=== PATIENT | female | born 1955 | race Caucasian/White ===

== ENCOUNTER 2024-08-07 00:30 | Emergency (ER) | payer MEDICARE, SELFPAY ==
[2024-08-07 00:33] VITALS: BP 166/126
[2024-08-07 00:50] VITALS: BP 170/102
[2024-08-07 01:00] VITALS: BP 161/93
[2024-08-07 01:16] LABS: % Immature Granulocytes 0.5 % (0-0.5); % Monocytes 8.3 % (1.7-9.3); % Neutrophils 44.2 % (42.2-75.2); Absolute Basophils 0.1 10^3/uL (0-0.2); Absolute Eosinophils 1.2 10^3/uL (0-0.7); Absolute Immature Granulocytes 0.1 10^3/uL (0-0.05); Absolute Lymphocytes 3.3 10^3/uL (1.2-3.4); Absolute Monocytes 0.8 10^3/uL (0.1-0.6); Absolute Neutrophils 4.3 10^3/uL (1.4-6.5); Hemoglobin 15.3 g/dL (12.0-16.0); Mean Corp Hgb Conc. 32.6 g/dL (33.0-37.0); Mean Corpuscular Hgb 28.2 pg (27.0-31.0); Mean Corpuscular Volume 86.7 fL (81.0-99.0); Nucleated Red Blood Cells % 0 %; Platelet Count 297 10^3/uL (130-400); Red Blood Cell Count 5.42 10^6/uL (4.20-5.40); Red Cell Dist. Width 13.8 % (11.5-14.5); White Blood Cell Count 9.7 10^3/uL (4.8-10.8)
[2024-08-07 01:28] LABS: ALT (SGPT) 19 U/L (0-35); AST (SGOT) 23 U/L (14-36); Alkaline Phosphatase 104 U/L (38-126); Blood Urea Nitrogen 18 mg/dl (7-17); Carbon Dioxide 24 mmol/L (22-30); Chloride 106 mmol/L (98-107); Glucose 116 mg/dl (70-99); Potassium 3.8 mmol/L (3.5-5.1); Sodium 140 mmol/L (135-145); Total Bilirubin 0.5 mg/dl (0.2-1.3); Total Protein 6.7 g/dl (6.3-8.2); eGFR > 60.00
--- NOTE | 2024-08-07 01:29 | ED.GENMED ---
History of Present Illness
General
Chief Complaint: Breathing Problem
Time Seen by Provider: 08/07/24 01:04
History of Present Illness
History of Present Illness:
patient presents with sob worsening over the past 24-48 hours gradually
feels similar to prior COPD exacerbations
no cp
no leg swelling
no fevers/chills
Phy Exam
Physical Exam
Physical Exam:
GENERAL APPEARANCE: NAD, well developed/ well nourished
EYES lids/conjunctiva normal
EARS/NOSE/THROAT Mucous membranes moist, uvula midline without oral pharyngeal erythema, exudate or swelling
HEAD/NECK normocephalic atraumatic, neck is supple.
RESPIRATORY respiratory effort normal, speaks in full sentences, no accessory muscle use. scattered wheezing
CARDIAC Regular rate and rhythm, no edema.
ABDOMINAL Soft, ND/NT.
MUSCLES/EXTREMITIES No abnormal range of motion, no swelling.
SKIN Warm, pink and dry. No rashes
NEUROLOGICAL Speech is clear and appropriate. Normal level of consciousness. 5/5 strength in all extremities.
PSYCH Normal mood and affect. Judgement/competence is appropriate
Scores
Heart Failure Risk
Heart Failure Risk Score: Not Applicable
Course
Orders/Labs/Results
Orders:
Orders
08/07/24 01:01
Electrocardiogram (*1) Urgent
Reason for Study: Other
Other Reason for Exam: Respiratory Distress
Cardiac Monitoring- Treatment ONCE
EKG- Treatment ONCE
IV Insert/Care/Rem.- Treatment PRN
CR Chest - 2 Views Urgent
Comment:
Reason For Exam: respiratory distress
O2 Therapy [RESP] Urgent
Titrate/Wean O2 to maintain O2 sat greater than (%): 93
Special Instructions: TO MAINTAIN CONTINUOUS O2 SATS >/= 93%
Pulse Ox/cont/shift [RESP] Urgent
Quantity: 1
Special Instructions: continuous pulse ox
08/07/24 01:03
Complete Blood Count/With Diff Urgent
Comprehensive Metabolic Panel Urgent
NT-proBNP Urgent
Troponin I Urgent
08/07/24 01:27
Albuterol Sulfate [Ventolin Nebules] 7.5 mg INH R NOW STA
MethylPREDNISolone PF [Solu-Medrol Pf] 125 mg IV NOW STA
08/07/24 01:40
Ipratropium/Albuterol Sulfate [Duoneb] 3 ml INH R NOW STA
08/07/24 01:45
COVID-19 Antigen Urgent
Source: Nasal Swab
Influenza A+B Rapid Molecular Urgent
GYPSY Source: Nasal Swab
Specimen Description:
Abnormal Lab Results
08/07/24
01:03
RBC 5.42 H 10^6/uL
(4.20-5.40)
MCHC 32.6 L g/dL
(33.0-37.0)
Abs Immat Gran (auto) 0.1 H 10^3/uL
(0-0.05)
Absolute Monos (auto) 0.8 H 10^3/uL
(0.1-0.6)
Absolute Eos (auto) 1.2 H 10^3/uL
(0-0.7)
Eosinophils % 12.0 H %
(0-6)
BUN 18 H mg/dl
(7-17)
Glucose 116 H mg/dl
(70-99)
08/07/24 01:03
08/07/24 01:03
Vital Signs
Initial and Last Documented VS:
Initial Vital Signs
Temp Pulse Resp BP Pulse Ox
97.6 F 121 24 166/126 91
08/07/24 00:33 08/07/24 00:33 08/07/24 00:33 08/07/24 00:33 08/07/24 00:33
Last Documented Vital Signs
Temp Pulse Resp BP Pulse Ox
97.6 F 81 21 161/93 95
08/07/24 00:33 08/07/24 01:17 08/07/24 01:17 08/07/24 01:00 08/07/24 01:17
*Critical Care Note
Total Time (30-74mins, 75-104mins- exclusive of procedures): Not Applicable
ED Attending Note
ED Attending Note
ED Attending Note:
Patient presents with wheezing and cough c/w COPD exacerbation. Patient desaturated requiring 2 L nasal cannula. Plan for bronchodilator nebulizer treatment, steroids, reassessment.
patient now saturating well on room air. Feels much better. Offered observation for continued neb treatments/steroids. She prefers to go home. Instructed to follow up with her primary doctor for close follow up . Return precautions
-
Portions of this chart may have been created with voice recognition software.� Occasional wrong word or��sound alike� substitutions may have occurred due to the inherent limitations of voice recognition software.
Discharge Plan
Departure
Patient Disposition: Home (Routine Discharge)
Date of Disposition: 08/07/24
Time of Disposition: 02:34
Patient with high blood pressure during this ER visit?: Yes
Discharge Problem:
Acute exacerbation of chronic obstructive pulmonary disease
Instructions: Exacerbation of COPD (DC)
Prescriptions:
New
albuterol sulfate 1.25 mg/3 mL solution for nebulization
2.5 mg inhalation QID PRN (Reason: shortness of breath or wheezing) Qty: 75 0RF
prednisone 20 mg tablet
40 mg PO DAILY Qty: 8 0RF
No Action
albuterol sulfate [ProAir HFA] 90 mcg/actuation Hfa Aerosol Inhaler
2 puff INHALATION QID PRN (Reason: SOB)
Anoro Ellipta 62.5-25 mcg/actuation Blister With Device
1 inh INHALATION DAILY
Referrals:
NONE,* [Family Provider] -
Interventions
Interventions:
*Risk Screen - Suicide Last Done: 08/07/24 00:43
*General Assessment Last Done: 08/07/24 00:50
*Neglect/Abuse Screening Last Done: 08/07/24 00:43
*ED COVID-19 Vaccine History Last Done: 08/07/24 00:33
ED- Cardiac Assessment Last Done: 08/07/24 01:57
ED- Pulmonary Assessment Last Done: 08/07/24 01:57
Discharge Date and Time
Print Language: OMANI
[2024-08-07 01:35] LABS: Troponin I < 0.012 ng/ml
[2024-08-07] MEDS: SOLU-MEDROL PF 125 MG IV (01:39)
[2024-08-07] MEDS: VENTOLIN NEBULES 7.5 MG INH (01:40)
[2024-08-07] MEDS: DUONEB 3 ML INH (01:41)
[2024-08-07 02:00] VITALS: BP 138/77
[2024-08-07 02:01] LABS: NT-proBNP 349 pg/ml
[2024-08-07 02:18] LABS: COVID-19 Antigen Negative (Negative)
[2024-08-07 02:57] VITALS: BP 144/70
== END 2024-08-07 03:11 | disposition home or self-care (01) ==
LOC: EMR 00:30
PROVIDERS: Student in an Organized Health Care Education/Training Program; EMERGENCY PHYSICIAN Emergency Medicine
DX: J44.1 Chronic obstructive pulmonary disease with (acute) exacerbation (principal)
CPT/HCPCS: 99283; 71046; 80053; 83880; 84484; 85025; 87502; 87811; 93005

== ENCOUNTER 2024-08-13 01:44 | Inpatient (IN) | payer MEDICARE, SELFPAY ==
[2024-08-12 22:23] VITALS: BP 169/101
[2024-08-12 23:15] VITALS: BP 158/93
[2024-08-12 23:21] VITALS: BMI 28.1
--- NOTE | 2024-08-12 23:41 | ED.GENMED ---
History of Present Illness
General
Chief Complaint: Breathing Problem
Time Seen by Provider: 08/12/24 23:03
History of Present Illness
History of Present Illness:
68-year-old female with history of COPD presenting to the emergency department for shortness of breath. Patient reports she woke up prior to arrival feeling short of breath with wheezing. She tried taking her inhaler without relief. Reports
similar symptoms about a week ago, did require coming to the hospital. Denies history of admission or intubation. Notes that she recently moved from [place] bout 3 weeks ago, had been living there for 20 years. Denies any chest pain. Denies
abdominal pain. She also reports a nonproductive cough. Denies additional acute medical complaints
Phy Exam
Physical Exam
Physical Exam:
General: Well-appearing, no clinical signs of dehydration, nontoxic and in no acute distress
HEENT: protecting airway
Neck: appears supple
CV: Normal heart rate, regular rhythm
Resp: Mild increased work of breathing with diffuse expiratory wheezing
Abd: Soft and non-distended, no tenderness to palpation
Extremities: No deformities, no swelling, no erythema
Neuro: alert, no focal neurologic deficit
: deferred
Rectal: deferred
Psych: Normal affect
Skin: Intact
Scores
Heart Failure Risk
Heart Failure Risk Score: Not Applicable
Course
Orders/Labs/Results
Orders:
Orders
08/12/24 22:26
EKG [Electrocardiogram (*1)] Urgent
Reason for Study: Palpitations
08/12/24 22:27
EKG- Treatment ONCE
08/12/24 23:25
Complete Blood Count/With Diff Urgent
Comprehensive Metabolic Panel Urgent
08/12/24 23:30
Ipratropium/Albuterol Sulfate [Duoneb] 9 ml INH R NOW STA
MethylPREDNISolone PF [Solu-Medrol Pf] 125 mg IV NOW STA
08/12/24 23:50
COVID-19 Antigen Urgent
Source: Nasal Swab
Influenza A+B Rapid Molecular Urgent
GYPSY Source: Nasal Swab
Specimen Description:
08/13/24 00:00
CR Chest - 2 Views Urgent
Reason For Exam: cough
08/13/24 01:29
Admit/Transfer Patient As Directed
Co-Sign Provider:
Level of Care: Inpatient admission
Assign to:: Medical/Surgical
Physician / Group: hospitalist
Diagnosis: COPD exacerbation
Reason for Hospitalization: hypoxia
Expected length of stay greater than two midnights?: Yes
ELOS- Estimated Length of Stay in days: 2
I certify the patient meets the requirements for IP care: Yes
Code Status As Directed
Resuscitation Status: Full Code
PRN Pain Medication Management As Directed
May give lesser potent ordered pain med per pt: Yes
preference::
Protocol:: Medication orders for pain may be administered in a
manner that supports deferring to patient preference
when the pt is:
- Requesting an ordered lesser potent pain medication.
Least to most potent pain medications are defined
as: acetaminophen < NSAID < tramadol < opioids
(morphine, oxycodone, hydromorphone).
- Requesting a lesser dose of the same medication IF
ORDERED.
- Requesting a less intrusive route of administration
if both routes are prescribed by the provider (PO <
IV).
08/13/24 02:24
Acetaminophen [Tylenol] 650 mg PO Q4HPRN PRN
Guaifenesin Solution [Robitussin] 200 mg PO Q4HPRN PRN
Ipratropium/Albuterol Sulfate [Duoneb] 3 ml INH R Q4HPRN PRN
MethylPREDNISolone PF [Solu-Medrol Pf] 40 mg IV Q12H
08/13/24 02:24
Activity As Directed
Activity Level: With Assistance
Intake/ Output As Directed
Frequency: Per unit guidelines
Vital Signs As Directed
Frequency: Per unit guidelines
Copd Education [RESP] Routine
Oxygen Therapy [O2 Therapy] [RESP] Routine
Nasal Cannula Liter Flow: 2 LPM
Titrate/Wean O2 to maintain O2 sat greater than (%): 92
DX Deep Vein Thrombosis Video Routine
08/13/24 Breakfast
Regular
At Your Request: Full Participation
Basic Metabolic Panel IN AM
08/13/24 08:00
Guaifenesin [Mucinex] 600 mg PO Q12
Ipratropium/Albuterol Sulfate [Duoneb] 3 ml INH R QID
08/13/24 18:00
Enoxaparin Sodium [Lovenox] 40 mg SC QPM
08/14/24 06:00
Azithromycin 500 mg/250 ml [Zithromax Infusion] 500 mg in 250 ml IV Q24H
Abnormal Lab Results
08/12/24
23:25
WBC 15.7 H 10^3/uL
(4.8-10.8)
MCHC 32.6 L g/dL
(33.0-37.0)
RDW 14.6 H %
(11.5-14.5)
Abs Immat Gran (auto) 0.2 H 10^3/uL
(0-0.05)
Absolute Lymphs (auto) 5.3 H 10^3/uL
(1.2-3.4)
Absolute Monos (auto) 1.4 H 10^3/uL
(0.1-0.6)
Absolute Eos (auto) 2.6 H 10^3/uL
(0-0.7)
Immature Gran % 1.0 H %
(0-0.5)
Neutrophils % 39.7 L %
(42.2-75.2)
Eosinophils % 16.3 H %
(0-6)
Glucose 116 H mg/dl
(70-99)
08/12/24 23:25
08/12/24 23:25
Vital Signs
Initial and Last Documented VS:
Initial Vital Signs
Temp Pulse Resp BP Pulse Ox
98.7 F 79 28 169/101 95
08/12/24 22:23 08/12/24 22:23 08/12/24 22:23 08/12/24 22:23 08/12/24 22:23
Last Documented Vital Signs
Temp Pulse Resp BP Pulse Ox
97.7 F 77 17 140/68 96
08/13/24 02:31 08/13/24 02:31 08/13/24 02:31 08/13/24 02:31 08/13/24 02:31
MDM/Problems Addressed
MDM/Problems Addressed:
68-year-old female with history of COPD presenting for cough and wheezing, which woke her up from sleep. Vital signs on arrival significant for hypertension.
On exam, patient is resting comfortably, however active dry cough. Diffuse expiratory wheezing. Suspected acute COPD exacerbation. Possible trigger from weather change, recently moved from [place] 3 weeks ago. Patient afebrile, nontoxic. Lower
suspicion for infectious pathology. Will give DuoNebs, Solu-Medrol. Will obtain chest x-ray imaging and laboratory analysis and reassess for improvement.
01:20 -chest x-ray without obvious infiltrate. On reassessment patient notes that she is feeling less tight, however still short of breath. When I walked into examination room, oxygen saturation was 86%. For this reason feel patient warrants
admission for hypoxia and COPD exacerbation. Patient agreeable to plan
*EKG
Interpreted by ED Provider?: Yes
EKG Intrepretation Date: 08/12/24
EKG Intrepretation Time: 23:43
Interpretation: normal
Comparison EKG: no changes (08/07/24)
Heart Rate: 81
Rate: normal
Rhythm: sinus
Larue: normal axis
Interval: normal interval
QRS Pattern: normal QRS
Ischemia: no ischemia
*Critical Care Note
Total Time (30-74mins, 75-104mins- exclusive of procedures): Not Applicable
ED Attending Note
-
Portions of this chart may have been created with voice recognition software.� Occasional wrong word or��sound alike� substitutions may have occurred due to the inherent limitations of voice recognition software.
Discharge Plan
Departure
Patient Disposition: Admit
Date of Disposition: 08/13/24
Time of Disposition: 01:25
Presentation/result/management discussed w/ accepting MD/DO: Hospitalist
Patient with high blood pressure during this ER visit?: No
Condition: Fair
Discharge Problem:
COPD with acute exacerbation, Hypoxia
Interventions
Interventions:
*Risk Screen - Suicide Last Done: 08/12/24 22:23
*General Assessment Last Done: 08/12/24 23:21
*Neglect/Abuse Screening Last Done: 08/12/24 22:23
*ED COVID-19 Vaccine History Last Done: 08/12/24 23:21
*Nursing Disposition Last Done: 08/13/24 02:16
ED- Cardiac Assessment Last Done: 08/12/24 23:21
ED- Pulmonary Assessment Last Done: 08/12/24 23:21
Discharge Date and Time
Discharge Date/Time: 08/13/24 02:16
[2024-08-12] MEDS: SOLU-MEDROL PF 125 MG IV (23:43)
[2024-08-12] MEDS: DUONEB 9 ML INH (23:43)
[2024-08-12 23:46] LABS: ALT (SGPT) 19 U/L (0-35); AST (SGOT) 19 U/L (14-36); Alkaline Phosphatase 94 U/L (38-126); Blood Urea Nitrogen 17 mg/dl (7-17); Carbon Dioxide 26 mmol/L (22-30); Chloride 107 mmol/L (98-107); Estimated Creatinine Clearance 80 ml/min; Glucose 116 mg/dl (70-99); Potassium 3.8 mmol/L (3.5-5.1); Sodium 140 mmol/L (135-145); Total Bilirubin 0.6 mg/dl (0.2-1.3); Total Protein 6.5 g/dl (6.3-8.2); eGFR > 60.00
[2024-08-12 23:48] LABS: Hematocrit 45.4 % (37.0-47.0); Hemoglobin 14.8 g/dL (12.0-16.0); Mean Corp Hgb Conc. 32.6 g/dL (33.0-37.0); Mean Platelet Volume 8.9 fL (7.4-10.4); Platelet Count 309 10^3/uL (130-400); Red Blood Cell Count 5.28 10^6/uL (4.20-5.40); Red Cell Dist. Width 14.6 % (11.5-14.5); White Blood Cell Count 15.7 10^3/uL (4.8-10.8)
[2024-08-13 00:21] LABS: COVID-19 Antigen Negative (Negative)
[2024-08-13 00:23] LABS: % Basophils 0.6 % (0-2); % Eosinophils 16.3 % (0-6); % Lymphocytes 33.7 % (20.5-51.1); % Monocytes 8.7 % (1.7-9.3); % Neutrophils 39.7 % (42.2-75.2); Absolute Basophils 0.1 10^3/uL (0-0.2); Absolute Eosinophils 2.6 10^3/uL (0-0.7); Absolute Immature Granulocytes 0.2 10^3/uL (0-0.05); Absolute Lymphocytes 5.3 10^3/uL (1.2-3.4); Absolute Monocytes 1.4 10^3/uL (0.1-0.6); Absolute Neutrophils 6.2 10^3/uL (1.4-6.5); Nucleated Red Blood Cells % 0 %
[2024-08-13 01:06] VITALS: BP 135/73
--- NOTE | 2024-08-13 01:50 | HPS.HSE ---
Family Physician
-
Family Physician: NOT KNOW UNKNOWN - PT DOES
Chief Complaint
-
Wheezing and shortness of breath
History of Present Illness
This is a 68-year-old female who has a past medical history of COPD not on home O2, diagnosed 1 year ago presenting to the emergency department with worsening cough shortness of breath and dyspnea on exertion after approximately 6 days of treatment
for COPD exacerbation recently.
She reported that she was diagnosed with COPD 1 year ago and is being followed by pulmonary. She is on [place]. She had a screening CT scan done recently about 4 to 5 weeks ago per pulmonary and had no acute issues. Patient then traveled from
[place] to start living in [place] 3 weeks ago. She says she drove about 16 hours. Patient reported that she started having symptoms of nonproductive cough or wheezing and shortness of breath about 8 days ago. She was seen in the emergency
department. She had a clear chest x-ray without any signs of acute infection. She was diagnosed with COPD exacerbation and placed on short course of prednisone. She reported that she took the prednisone and finished the course about 2 days ago.
She felt improved while she was on prednisone but once she finished the medication she started having the dyspnea on exertion and shortness of breath again. She states she arose this evening with severe shortness of breath dyspnea on exertion and
she could not catch her breath. She denies having any chest pain. She denied any dizziness or lightheadedness. Her cough is nonproductive and she was not markedly coughing for me. She has had no fevers or chills. She is unaware of any sick
contacts. She stopped smoking about 1 year ago.
She denies any history of congestive heart failure, she denies any lower extremity edema PND or orthopnea.
In the emergency department the patient was afebrile, blood pressure was stable at 125/70 with a pulse of 89. She was satting at 88% on room air. After initial treatments in the ED she improved but again desatted to 80s on room air. ECG showed
normal sinus rhythm at a rate of [address] or T wave changes. Chest x-ray shows no acute infiltrates. White count was 15,000 with involvement of 14.8 and a normal platelet count. Electrolytes BUN/creatinine as well as LFTs were within
normal limits. COVID and influenza test were negative
Medical History
Past Medical History
Past Medical History: Reports COPD
Past Surgical History: Reports Cholecystectomy
Social History
Tobacco: Former Smoker
Alcohol: None
Drug: None
Personal: Single
Living: Alone
Employment: Retired
Family History
Family History: Not pertinent
Allergies / Home Medications
Allergies reflects when Allergies were last updated in [facility].
Home Medications with original date entered in [facility]
Allergy/Medication List:
Allergies
Allergy/AdvReac Type Severity Reaction Status Date / Time
Cephalosporins Allergy Unknown Verified 08/12/24 22:23
penicillin G Allergy Unknown Verified 08/12/24 22:23
Penicillins Allergy Unknown Verified 08/12/24 22:23
Home Medications
albuterol sulfate 1.25 mg/3 mL solution for nebulization 2.5 mg (6 mL) inhalation QID PRN shortness of breath or wheezing #75 mL 08/07/24
albuterol sulfate 90 mcg/actuation aerosol inhaler 2 puff inhalation QID PRN SOB 08/07/24
prednisone 20 mg tablet 40 mg (2 x 20 mg) PO DAILY #8 tabs 08/07/24
umeclidinium 62.5 mcg-vilanterol 25 mcg/actuation powdr for inhalation (Anoro Ellipta) 1 inh inhalation DAILY 08/07/24
Review of Systems
-
History Source: Patient
Constitutional: Reports No Symptoms
EENT: Reports No Symptoms
Respiratory: Reports Cough and Trouble Breathing
Cardiac: Reports No Symptoms
Abdomen/GI: Reports No Symptoms
: Reports No Symptoms
Musculoskeletal: Reports No Symptoms
Skin: Reports No Symptoms
Neurological: Reports No Symptoms
Endocrine: Reports No Symptoms
Hematologic/Lymphatic: Reports No Symptoms
Psych: Reports No Symptoms
Physical Exam
Vital Signs
Vital Signs
Temp Pulse Resp BP Pulse Ox
98.7 F 88 27 135/73 93
08/12/24 22:23 08/13/24 01:06 08/13/24 01:06 08/13/24 01:06 08/13/24 00:30
Physical Exam
General: Well Developed, Well Nourished, Comfortable and Conversant
HEENT: NormoCephalic, Anicteric, Moist mucous membranes and Atraumatic
Respiratory: Wheezes
Cardiac: S1/S2 and Regular Rhythm
Breast: Deferred by me
GI: Soft, Non Tender, Non Distended and Normal Bowel Sounds
Rectal: Deferred by Provider
Genito-urinary: Deferred by me
Musculoskeletal: No Clubbing, No Cyanosis and No Edema
Skin: Warm
Neuro: AO x 3
Hematologic/Lymphatic: No Lymphadenopathy
Psych: Calm
Laboratory Results
-
08/12/24 23:25
08/12/24 23:25
Laboratory Results
Total Bilirubin 0.6 mg/dl (0.2-1.3) 08/12/24 23:25
AST 19 U/L (14-36) 08/12/24 23:25
ALT 19 U/L (0-35) 08/12/24 23:25
Alkaline Phosphatase 94 U/L (38-126) 08/12/24 23:25
Data Reviewed
-
Diagnostic Radiology: Image Personally Visualized and interpreted
Medical Tests (Nuc Med, Echo, EKG etc): Image Personally Visualized and interpreted
Lab Data: Labs Reviewed by me
Old Records: Reviewed
Impression/Plan
-
IMPRESSION:
68 y.o female with history of COPD coming in with persistent symptoms of non-productive cough, shortness of breath and wheezing despite recent treatment with steroids and nebs for presumed non-infectious COPD exacerbation. She is hypoxic on room
air. Xray is clear. No signs of volume issues. CBC notable for leukocytosis with significant eos. She has hypereosinophilia but no prior diagnosis of asthma and denies hospitalizations for bronchitis/pneumonia in the past. Negative flu/covid.
PLAN:
1. SOB/Hypoxia - Recent diagnosis of COPD here with cough, hypoxia, wheezing SOB. Differential includes COPD exacerbation from viral/bacterial infection. Possibly triggered by PE, recent [address] from [place]. Given eosinophilia cannot rule
out asthma with/or new allergic exposures given recent move to new home.
- admit to med surg
- check d-dimer, RSV,
- start azithromycin
- solu-medrol 40mg iv q 12
- duonebs RTC and prn
- oxygen support
- consider pulmonary consultation
2. Leukocytosis - Likely from recent steroid use
- monitor
3. Possible Hypereosinophilia - Given wheezing suspect possibility of asthma. Had a recent CT Chest before coming from [place] which had no pulmonary mass/nodules or blood clot. No priro h/o malignancy. No new meds
- treatment as above
- repeat CBC when patient improved in 1 month and f/u with pmd or hematology
DVT PPX - lovenox sq
Code status -DNR
[2024-08-13 02:00] VITALS: BP 121/53
[2024-08-13 02:31] VITALS: BP 140/68
[2024-08-13 02:35] VITALS: BMI 27.1
[2024-08-13 02:42] LABS: D-Dimer 0.69 ug/mlFEU (0.00-0.50)
[2024-08-13] MEDS: TYLENOL 650 MG PO (03:13)
--- NOTE | 2024-08-13 04:05 | PTCARENOTE ---
pt arrived to floor via stretcher From ED with 2L o2 satting at 96%. Pt and ambulated with a steady gait to bed, no obvi ROLAND. VSS. Pt oriented to room, call [facility] in reach, and discussed plan of care. Will continue to monitor.
[2024-08-13] MEDS: ZITHROMAX INFUSION 250 IV (04:59)
[2024-08-13] MEDS: COMPAZINE 5 MG IV (06:09)
[2024-08-13] MEDS: DUONEB 3 ML INH ×4 (07:26→19:20)
[2024-08-13 08:00] VITALS: BP 144/78
[2024-08-13 08:23] LABS: Blood Urea Nitrogen 18 mg/dl (7-17); Calcium 8.8 mg/dl (8.4-10.2); Carbon Dioxide 24 mmol/L (22-30); Chloride 108 mmol/L (98-107); Estimated Creatinine Clearance 83 ml/min; Glucose 158 mg/dl (70-99); Potassium 4.9 mmol/L (3.5-5.1); Sodium 140 mmol/L (135-145); eGFR > 60.00
[2024-08-13] MEDS: MUCINEX 600 MG PO ×2 (08:55→20:19)
[2024-08-13] MEDS: SOLU-MEDROL PF 40 MG IV ×2 (08:57→20:23)
[2024-08-13] MEDS: VIBRAMYCIN 260 MG IV ×2 (09:11→22:21)
--- NOTE | 2024-08-13 09:51 | W.PN.UPDATE ---
Update Note
Progress Note Update
Patient seen and examined after postmidnight admission. She reports her shortness of breath is improved. Vital signs stable. No acute distress, awake and alert. Regular rate and rhythm, normal S1-S2. Clear to auscultation bilaterally. Continue
IV Solu-Medrol and plan as outlined in the H&P done earlier today.
--- NOTE | 2024-08-13 10:20 | CON.PUL ---
Consultation
Consultation Request
Date/Time Consultation Requested: 08/13/24
Date/Time Consultation Performed: 08/13/24
Performing Provider: Therese
Reason for Consultation: AECOPD
Medical History
-
History of Present Illness:
Patient is a 68-year-old female with past medical history of COPD not on home O2, diagnosed 1 year ago presenting to the emergency department with worsening cough, shortness of breath after recent treatment for COPD exacerbation on 08/07 (she was
seen in ER and given neb treatment and prednisone taper).
She reported that she was diagnosed with COPD 1 year ago and is being followed by pulmonary in [place], placed on Wixela. She had a screening CT scan done recently about 4 to 5 weeks ago per pulmonary and had no acute issues. Patient then moved to [place] 3
weeks ago, transitioned to [facility] but not yet seen. Noted to drive 16 hours from [place]. No records for review.
Former smoker, stopped smoking about 1 year ago.
In ER, she was noted to be 88% on room air. Chest x-ray shows no acute infiltrates. COVID and influenza test were negative.
Not sure what triggered this episode, she had completed her prednisone taper prior to.
Past Medical History
Past Medical History: Other (see list below)
Social History
Tobacco: Former Smoker
Alcohol: None
Drug: None
Family History
Family History: Reviewed & Not Pertinent
Allergies / Home Medications
Allergies
Allergy/AdvReac Type Severity Reaction Status Date / Time
azithromycin Allergy Nausea / Verified 08/13/24 06:06
Vomiting
Cephalosporins Allergy Unknown Verified 08/12/24 22:23
penicillin G Allergy Unknown Verified 08/12/24 22:23
Penicillins Allergy Unknown Verified 08/12/24 22:23
Home Medications
�Medication �Instructions �Recorded �Confirmed �Last Taken �Type
albuterol sulfate 1.25 mg/3 mL 2.5 mg (6 mL) inhalation QID PRN 08/07/24 08/13/24 08/12/24 09:00 Rx
solution for nebulization shortness of breath or wheezing
#75 mL
albuterol sulfate 90 mcg/actuation 2 puff inhalation QID PRN SOB 08/07/24 08/07/24 Unknown History
aerosol inhaler
prednisone 20 mg tablet 40 mg (2 x 20 mg) PO DAILY #8 tabs 08/07/24 08/12/24 20:00 Rx
umeclidinium 62.5 mcg-vilanterol 1 inh inhalation DAILY 08/07/24 08/07/24 Unknown History
25 mcg/actuation powdr for
inhalation (Anoro Ellipta)
fluticasone 250 mcg-salmeterol 50 inh inhalation BID 08/13/24 08/12/24 20:00 History
mcg/dose blistr powdr for
inhalation (Wixela Inhub)
Review of Systems
-
History Source: Patient
All other systems: Negative unless noted
Vitals / Labs / Diagnostic Testing
Vital Signs
Temp Pulse Resp BP Pulse Ox
99.2 F 78 16 144/78 94
08/13/24 08:00 08/13/24 08:00 08/13/24 08:00 08/13/24 08:00 08/13/24 08:26
Lab Data
08/12/24 23:25
08/13/24 07:18
Microbiology
08/12/24 23:50 Nasal Swab Influenza Types A & B (EDIL) - Final
Negative for Influenza A & B, NAAT
Negative results must be combined with clinical observations
and patient history.
Nucleic Acid Amplification test (NAAT)performed on the
[employer] platform.
Diagnostic Testing:
Physical Exam
-
HEENT: Normocephalic, Anicteric and Moist Mucous Membranes
Cardiovascular: S1/S2 and Regular Rhythm
Respiratory: Clear and Non-Labored Respirations
GI: Soft, Non Distended and Non Tender
Neurology: Awake, Alert, Oriented and No Motor Deficits
Skin: Warm, Dry and Good Color
General: Comfortable and Other (NAD)
Assessment
-
Patient is a 68-year-old female with past medical history of COPD not on home O2, diagnosed 1 year ago presenting to the emergency department with worsening cough, shortness of breath after recent treatment for COPD exacerbation on 08/07 (she was
seen in ER and given neb treatment and prednisone taper).
AECOPD, recurrent despite recent steroids taper
Hypoxemia
SOB, progressive
Leukocytosis, mild
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
COPD-moderate, last seen in [place] Jun 2023, on Wixela
Former smoker, 1 PPD for 40 years
Cholecystectomy
Plan
Hypoxemia noted on arrival, O2 anand 88%
Home O2 evaluation in AM
Prior history of lung disease is noted including COPD
She reported that she was diagnosed with COPD 1 year ago and is being followed by pulmonary in [place], placed on Wixela. Last PFT 06/2023- was told she was 'moderate COPD'
She had a screening CT scan done recently about 4 to 5 weeks ago per pulmonary and had no acute issues.
Patient then moved to [place] 3 weeks ago, transitioned to [facility] but not yet seen (had appt for 09/04). Noted to drive 16 hours from [place]. No records for review.
Former smoker, stopped smoking about 1 year ago.
In ER, she was noted to be 88% on room air. Chest x-ray shows no acute infiltrates. COVID and influenza test were negative.
Not sure what triggered this episode, she had completed her prednisone taper prior to.
Will obtain CTA to r/o PE given her long car ride
Will also obtain ECHO as she has never had cardiac w/u.
If w/u can consider extended prednisone taper this time
PFTs needed as OP to r/o worsening lung disease
Smoking history noted
Smoking cessation--stopped 1 year ago
We discussed yearly LDCT
Will need outpatient pulmonary evaluation in our office for PFTs and 6MWT
Reviewed with patient and son at bedside
We will follow
Diagnostic Data
Chest X-Ray: 08/13/24 No acute disease of the chest
08/07/24- Thin vertical linear density within the medial aspect of the left lower lung, compatible with linear atelectasis or scar. Deformity of the left posterolateral sixth rib, likely an old fracture. Please correlate with any history of recent
injury or localized symptoms in this region. There is no evidence of pneumothorax or pleural effusion.
CT Scan:
Echo:
PFT's:
Reports and relevant images were personally reviewed.
Total time spent on this consultation __75__ minutes which includes review of history, physical exam, medications, laboratory data, personal review of imaging, extensive review of outpatient records, discussion with care team and respiratory therapy.
[2024-08-13 16:00] VITALS: BP 140/82
[2024-08-13 20:22] LABS: Hepatitis C Antibody Reactive (Negative)
[2024-08-13 22:05] VITALS: BP 140/76
[2024-08-14] MEDS: DUONEB 3 ML INH ×4 (07:31→18:24)
[2024-08-14 07:48] VITALS: BP 161/94
[2024-08-14] MEDS: MUCINEX 600 MG PO ×2 (08:47→19:30)
[2024-08-14] MEDS: VIBRAMYCIN 260 MG IV (08:49)
[2024-08-14] MEDS: SOLU-MEDROL PF 40 MG IV ×2 (08:49→19:29)
--- NOTE | 2024-08-14 10:42 | W.PN.HOSP.TC ---
Addendum entered and electronically signed by Gwyn Lara MD 08/14/24 17:19:
Atelectasis
Original Note:
Today's Communication/Plan
-
see bold
Assessment / Plan
Assessment / Plan
Gen: NAD, AAOx3.
Eyes: EOMI, PERRLA, no scleral icterus.
Neck: supple.
CV: RRR, +S1/S2, no m/r/g.
Resp: CTAB, no rales, wheezes, or rhonchi.
Abd: +BS, soft, NT, ND
Skin: No rashes.
Neuro: CN 2-12 intact, non-focal.
Psych: Normal mood and affect.
CTA chest: Some mild dependent subsegmental atelectasis and mild right upper lobe scarring. No focal parenchymal consolidation, pneumothorax or pleural effusion. Pulmonary interstitium at least top normal, cannot exclude minor interstitial edema or
interstitial pneumonitis. Prior cholecystectomy.
Acute hypoxemic respiratory insufficiency due to acute COPD +/- asthma exacerbation:
-COVID/Flu NEG
-CTA chest without PE
-check echo
-cont Solu-Medrol/Doxy
-Pulmonary following
-Trend leukocytosis which is likely due to recent steroid use
DNR/Lovenox
Anticipated Discharge: Today
Subjective/Interval History
-
Date of Service: August 14, 2024
Objective Data
-
Vital Signs:
Vital Signs
Temp Pulse Resp BP Pulse Ox
97.7 F 85 16 161/94 95
08/14/24 07:48 08/14/24 07:48 08/14/24 07:48 08/14/24 07:48 08/14/24 07:48
I&O
08/13/24 08/14/24 08/15/24
06:59 06:59 06:59
Intake Total 2580 / 2580
Balance 2579
[2024-08-14 11:26] LABS: Hematocrit 42.5 % (37.0-47.0); Hemoglobin 14.1 g/dL (12.0-16.0); Mean Corp Hgb Conc. 33.2 g/dL (33.0-37.0); Mean Corpuscular Hgb 28.4 pg (27.0-31.0); Mean Corpuscular Volume 85.7 fL (81.0-99.0); Mean Platelet Volume 9.3 fL (7.4-10.4); Platelet Count 305 10^3/uL (130-400); Red Blood Cell Count 4.96 10^6/uL (4.20-5.40); Red Cell Dist. Width 14.6 % (11.5-14.5); White Blood Cell Count 23.9 10^3/uL (4.8-10.8)
[2024-08-14 11:36] LABS: Blood Urea Nitrogen 19 mg/dl (7-17); Carbon Dioxide 25 mmol/L (22-30); Chloride 109 mmol/L (98-107); Estimated Creatinine Clearance 83 ml/min; Glucose 183 mg/dl (70-99); Potassium 4.4 mmol/L (3.5-5.1); Sodium 143 mmol/L (135-145); eGFR > 60.00
--- NOTE | 2024-08-14 14:49 | W.PN.PUL3 ---
Today's Communication / Plan
-
Continue with current care nebulizers
Solu-Medrol at the current dose, transition to prednisone tomorrow if continues to improve.
Doxycycline will transition to oral and complete 5 days
Echocardiogram pending
Home oxygen assessment prior to discharge
Will follow
Assessment
-
Patient is a 68-year-old female with past medical history of COPD not on home O2, diagnosed 1 year ago presenting to the emergency department with worsening cough, shortness of breath after recent treatment for COPD exacerbation on 08/07 (she was
seen in ER and given neb treatment and prednisone taper).
AECOPD, recurrent despite recent steroids taper
Hypoxemia
SOB, progressive
Leukocytosis, mild
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
COPD-moderate, last seen in [place] Jun 2023, on Wixela
Former smoker, 1 PPD for 40 years
Cholecystectomy
Plan
Hypoxemia noted on arrival, O2 anand 88%-clinically improved. No oxygen requirements
Lung exam with prolonged expiratory phase, minimal expiratory wheezing bilaterally.
Prior history of lung disease is noted including COPD
She reported that she was diagnosed with COPD 1 year ago and is being followed by pulmonary in [place], placed on Wixela. Last PFT 06/2023- was told she was 'moderate COPD'
She had a screening CT scan done recently about 4 to 5 weeks ago per pulmonary and had no acute issues.
Patient then moved to [place] 3 weeks ago, transitioned to [facility] but not yet seen (had appt for 09/04). Noted to drive 16 hours from [place]. No records for review.
Former smoker, stopped smoking about [address] chest reviewed: Showed no acute abnormality. No significant interstitial lung disease or pleural effusions.
COVID-negative
Mild hypoxemia has resolved.
Not sure what triggered this episode, she had completed her prednisone taper prior to.
Echocardiogram pending, will follow. Has never had cardiac evaluation.
If patient improves with nebulizers and IV corticosteroids then:
Continue Solu-Medrol without change, if improved can transition to prednisone tomorrow
Continue nebulizer therapy
Upon discharge restart inhalers, may use nebulizers as needed while she recovers.
Upon discharge for will send with a prolonged prednisone course.
-
PFTs needed as OP to r/o worsening lung disease
Smoking history noted
Smoking cessation--stopped 1 year ago
yearly LDCT was discussed
Will need outpatient pulmonary evaluation in our office for PFTs and 6MWT-has an appointment with Dr. Nugent already scheduled for initial visit.
Dr. Shin reviewed with patient and son at bedside
We will follow
Diagnostic Data
Chest X-Ray: 08/13/24 No acute disease of the chest
08/07/24- Thin vertical linear density within the medial aspect of the left lower lung, compatible with linear atelectasis or scar. Deformity of the left posterolateral sixth rib, likely an old fracture. Please correlate with any history of recent
injury or localized symptoms in this region. There is no evidence of pneumothorax or pleural effusion.
CT Scan:
Echo:
PFT's:
Reports and relevant images were personally reviewed.
Subjective Data
-
Date of Service:
Date of Service: August 14, 2024
Chief Complaint: Pulmonary Follow Up (Acute exacerbation of COPD)
Subjective:
Continues to complain of shortness of breath
Denies significant phlegm production
Review of Systems
General: Fever
Cardiopulmonary: Dyspnea, Dyspnea on Exertion and Chest Pain (n)
GI: Abdominal Pain (n) and Nausea (n)
Neuro: Headache (n)
Objective Data
Data Reviewed
Vital Signs / I&O / Oxygen:
Vital Signs
Temp Pulse Resp BP Pulse Ox
97.7 F 79 16 161/94 98
08/14/24 07:48 08/14/24 11:02 08/14/24 11:02 08/14/24 07:48 08/14/24 11:02
Intake and Output
08/13/24 08/14/24 08/15/24
06:59 06:59 06:59
Intake Total 2580 / 2580
Balance 2580 / 2580
SaO2 98
Nasal Cannula flow liters per 2
minute
Physical Exam
General: Comfortable
HEENT: Normocephalic
Cardiovascular: S1-S2 and Regular Rhythm
Respiratory: Other (Prolonged expiratory phase)
GI: Soft and Non Distended
Neurology: Awake
Labs/Micro/Reports
Lab Data
08/14/24 11:09
08/14/24 11:09
Microbiology
08/12/24 23:50 Nasal Swab Influenza Types A & B (EDIL) - Final
Negative for Influenza A & B, NAAT
Negative results must be combined with clinical observations
and patient history.
Nucleic Acid Amplification test (NAAT)performed on the
[employer] platform.
[2024-08-14 15:03] VITALS: BP 126/80
--- NOTE | 2024-08-14 16:32 | PN.CDI ---
CDI
- -
CDI:
Physician Documentation Request
Admit Date: 08/13/24 01:44
Dear Doctor Jane,
Please review the following and provide your response in the progress notes.
Clinical Indicators:
The diagnosis of atelectasis was included in the signed CT scan Chest on 08/13.
Additional clinical indicators in the chart include:
Pt admitted with Acute COPD exacerbation.
08/13 Pt placed on 2LNC 02:00- 08:00
08/14 pulmonary note: 'Hypoxemia noted on arrival, O2 anand 88%-clinically improved'
Please indicate in your progress notes if you are in agreement that the above diagnosis is valid for this patient:
Atelectasis is a valid diagnosis (Please include it in your progress notes)
Atelectasis is not a valid diagnosis for this patient
Other
Use of terms such as suspected, likely, concern for, or probable are acceptable for a diagnosis that is being evaluated, monitored or treated as if it exists and can be coded in the inpatient setting, when documented at the time of discharge.
Thank you,
Annamaria Mckenzie RN, BSN
CDI Specialist
Available via [place] [employer]
Please use your independent medical judgment in providing your response.
[2024-08-14] MEDS: VIBRAMYCIN 100 MG PO (19:29)
[2024-08-14] MEDS: COMPAZINE 5 MG IV (19:29)
[2024-08-14 23:36] VITALS: BP 136/88
[2024-08-15 07:10] VITALS: BP 170/82
[2024-08-15] MEDS: DUONEB 3 ML INH ×2 (07:41→11:13)
[2024-08-15 07:50] LABS: Hematocrit 42.6 % (37.0-47.0); Hemoglobin 14.3 g/dL (12.0-16.0); Mean Corp Hgb Conc. 33.6 g/dL (33.0-37.0); Mean Corpuscular Volume 86.4 fL (81.0-99.0); Mean Platelet Volume 9.5 fL (7.4-10.4); Platelet Count 317 10^3/uL (130-400); Red Blood Cell Count 4.93 10^6/uL (4.20-5.40); Red Cell Dist. Width 14.6 % (11.5-14.5); White Blood Cell Count 23.4 10^3/uL (4.8-10.8)
[2024-08-15] MEDS: VIBRAMYCIN 100 MG PO (07:56)
[2024-08-15] MEDS: SOLU-MEDROL PF 40 MG IV (07:56)
[2024-08-15] MEDS: MUCINEX 600 MG PO (07:56)
[2024-08-15 08:18] LABS: Blood Urea Nitrogen 26 mg/dl (7-17); Calcium 8.9 mg/dl (8.4-10.2); Carbon Dioxide 25 mmol/L (22-30); Chloride 106 mmol/L (98-107); Estimated Creatinine Clearance 71 ml/min; Glucose 114 mg/dl (70-99); Potassium 4.5 mmol/L (3.5-5.1); Sodium 141 mmol/L (135-145); eGFR > 60.00
--- NOTE | 2024-08-15 09:17 | CM ---
CM following re: discharge planning.
Reviewed pt's chart, met with pt.
Pt is a 68 year old female, admitted with primary dx of COPD Exacerbation.
Pt reports she just moved to [place] from [place], lives alone in an apartment, has supportive son Yong. 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 No DME, VN or SNF history. Pt stated her son will transport home at discharge.
PCP: pt stated she does not have PCP because she just moved here from [place]. Pt stated she has product managent intern Dr. Shin. CM provided [facility] with [facility] office and pt stated she will go there.
Pharmacy: [facility]
D/C plan: home no needs. Son to transport.
--- NOTE | 2024-08-15 11:02 | W.PN.HOSP.TC ---
Today's Communication/Plan
-
d/c
Assessment / Plan
Assessment / Plan
Gen: NAD, AAOx3.
Eyes: EOMI, PERRLA, no scleral icterus.
Neck: supple.
CV: remains RRR, +S1/S2, no m/r/g.
Resp: remains CTAB, no rales, wheezes, or rhonchi.
Abd: +BS, soft, NT, ND
Skin: No rashes.
Neuro: remains CN 2-12 intact, non-focal.
Psych: Normal mood and affect.
CTA chest: Some mild dependent subsegmental atelectasis and mild right upper lobe scarring. No focal parenchymal consolidation, pneumothorax or pleural effusion. Pulmonary interstitium at least top normal, cannot exclude minor interstitial edema or
interstitial pneumonitis. Prior cholecystectomy.
Echo:
1. Normal left ventricular size, wall thickness and systolic function. No
regional wall motion abnormalities are seen. LV ejection fraction is 64% by
volumetric assessment. Normal diastolic function.
2. Normal right ventricular size and function.
3. No significant valvular abnormalities.
4. No pericardial effusion.
Acute hypoxemic respiratory insufficiency due to acute COPD +/- asthma exacerbation:
-COVID/Flu NEG
-CTA chest without PE
-echo unremarkable as above
-currently on Solu-Medrol/Doxy
-Pulmonary following
-leukocytosis likely steroid-induced
-d/c on steroid taper
DNR/Lovenox
Total time spent on d/c = 31 min. This included today's physical exam, progress note, review of laboratory and diagnostic data, preparation of discharge documents and prescriptions, and discussions about the pt's hospital course and discharge plan
with the patient and other certified medical biller involved in the patient's care.
Anticipated Discharge: Today
Subjective/Interval History
-
Date of Service: August 15, 2024
Shortness of breath is improved.
Objective Data
-
Labs:
Laboratory Results
08/15/24
06:42
WBC 23.4 H
Hgb 14.3
Hct 42.6
Plt Count 317
Sodium 141
Potassium 4.5
Chloride 106
Carbon Dioxide 25
BUN 26 H
Creatinine 0.7
Glucose 114 H
Calcium 8.9
Vital Signs:
Vital Signs
Temp Pulse Resp BP Pulse Ox
97.9 F 74 16 170/82 95
08/15/24 07:10 08/15/24 07:43 08/15/24 07:43 08/15/24 07:10 08/15/24 07:43
I&O
08/14/24 08/15/24 08/16/24
06:59 06:59 06:59
Intake Total 2580 / 2580 720 / 720
Balance 2580 / 2580 720 / 720
[2024-08-15 11:26] VITALS: BP 152/84
--- NOTE | 2024-08-15 12:51 | W.PN.PUL3 ---
Today's Communication / Plan
-
Doing well, stable on RA
W/u negative
F/u outpatient for next steps
Ok for discharge planning
Assessment
-
Patient is a 68-year-old female with past medical history of COPD not on home O2, diagnosed 1 year ago presenting to the emergency department with worsening cough, shortness of breath after recent treatment for COPD exacerbation on 08/07 (she was
seen in ER and given neb treatment and prednisone taper).
AECOPD, recurrent despite recent steroids taper
Hypoxemia
SOB, progressive
Leukocytosis, mild
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
COPD-moderate, last seen in [place] Jun 2023, on Wixela
Former smoker, 1 PPD for 40 years
Cholecystectomy
Plan
Hypoxemia noted on arrival, O2 anand 88%-clinically improved. No oxygen requirements
Lung exam with prolonged expiratory phase, minimal expiratory wheezing bilaterally.
Prior history of lung disease is noted including COPD
She reported that she was diagnosed with COPD 1 year ago and is being followed by pulmonary in [place], placed on Wixela. Last PFT 06/2023- was told she was 'moderate COPD'
She had a screening CT scan done recently about 4 to 5 weeks ago per pulmonary and had no acute issues.
Patient then moved to [place] 3 weeks ago, transitioned to [facility] but not yet seen (had appt for 09/04). Noted to drive 16 hours from [place]. No records for review.
Former smoker, stopped smoking about [address] chest reviewed: Showed no acute abnormality. No significant interstitial lung disease or pleural effusions.
COVID-negative
Mild hypoxemia has resolved.
Not sure what triggered this episode, she had completed her prednisone taper prior to.
Echocardiogram stable
If patient improves with nebulizers and IV corticosteroids then:
Continue Solu-Medrol without change, if improved can transition to prednisone tomorrow
Continue nebulizer therapy
Upon discharge restart inhalers, may use nebulizers as needed while she recovers.
Upon discharge for will send with a prolonged prednisone course.
PFTs needed as OP to r/o worsening lung disease
Smoking history noted
Smoking cessation--stopped 1 year ago
yearly LDCT was discussed
Will need outpatient pulmonary evaluation in our office for PFTs and 6MWT-has an appointment with Dr. Nugent already scheduled for initial visit.
Dr. Shin reviewed with patient and son at bedside
Discharge planning per team
Diagnostic Data
Chest X-Ray: 08/13/24 No acute disease of the chest
08/07/24- Thin vertical linear density within the medial aspect of the left lower lung, compatible with linear atelectasis or scar. Deformity of the left posterolateral sixth rib, likely an old fracture. Please correlate with any history of recent
injury or localized symptoms in this region. There is no evidence of pneumothorax or pleural effusion.
CT Scan:
Echo:
PFT's:
Reports and relevant images were personally reviewed.
Subjective Data
-
Date of Service:
Date of Service: August 15, 2024
Chief Complaint: Pulmonary Follow Up (Acute exacerbation of COPD)
Subjective:
No new events, remains stable on RA
Doing well without ROLAND
Objective Data
Data Reviewed
Vital Signs / I&O / Oxygen:
Vital Signs
Temp Pulse Resp BP Pulse Ox
97.9 F 96 16 170/82 94
08/15/24 07:10 08/15/24 11:15 08/15/24 11:15 08/15/24 07:10 08/15/24 11:15
Intake and Output
08/14/24 08/15/24 08/16/24
06:59 06:59 06:59
Intake Total 2580 / 2580 720 / 720
Balance 2580 / 2580 720 / 720
SaO2 94
Nasal Cannula flow liters per 2
minute
Physical Exam
General: Comfortable
HEENT: Normocephalic and Moist Mucous Membranes
Cardiovascular: S1-S2 and Regular Rhythm
Respiratory: Clear, Non-Labored Respirations and Other (Prolonged expiratory phase)
GI: Soft, Non Distended and Non Tender
Neurology: Awake, Alert, Oriented and No Motor Deficits
Skin: Warm, Dry and Good Color
Labs/Micro/Reports
Lab Data
08/15/24 06:42
08/15/24 06:42
Microbiology
08/12/24 23:50 Nasal Swab Influenza Types A & B (EDIL) - Final
Negative for Influenza A & B, NAAT
Negative results must be combined with clinical observations
and patient history.
Nucleic Acid Amplification test (NAAT)performed on the
[employer] platform.
--- NOTE | 2024-08-15 13:08 | W.DCSUMMARY ---
Discharge Summary
Discharge Data
Date of Admission: 08/13/24
Date of Discharge: 08/15/24
-
Pending Results: No
Hospital Course
Primary diagnoses:
Acute hypoxemic respiratory insufficiency due to acute exacerbation of chronic obstructive pulmonary disease
Secondary diagnoses:
Steroid-induced leukocytosis
Consultants:
Pulmonary
Imaging:
CTA chest: Some mild dependent subsegmental atelectasis and mild right upper lobe scarring. No focal parenchymal consolidation, pneumothorax or pleural effusion. Pulmonary interstitium at least top normal, cannot exclude minor interstitial edema or
interstitial pneumonitis. Prior cholecystectomy.
Echo:
1. Normal left ventricular size, wall thickness and systolic function. No
regional wall motion abnormalities are seen. LV ejection fraction is 64% by
volumetric assessment. Normal diastolic function.
2. Normal right ventricular size and function.
3. No significant valvular abnormalities.
4. No pericardial effusion.
Hospital course: 68-year-old female who presented with chief complaints of wheezing and shortness of breath as outlined in the H&P done on admission. The patient had no pneumonia or pulmonary embolism on imaging as above. Her COVID and flu tests
were negative. Her echocardiogram was unremarkable as above. She was treated with Solu-Medrol and doxycycline and had improvement in her symptoms. She was weaned off oxygen. She was discharged in medically stable condition on a steroid taper and
for further days of doxycycline.
Discharge Plan
-
Patient Disposition: Home (Routine Discharge)
Discharge Diagnosis/Procedures: Acute exacerbation of chronic obstructive pulmonary disease
Condition: Good
Diet: No restrictions
Activity: As tolerated
Driving Restrictions: As prior to admission
Referrals:
Louise Saleh, DO [Active] -
(Has appt 09/04 as new patient
Can arrange hospital FU appt in 1-2 weeks with PFTs
Can keep 09/04 apt as FU or move pending visit )
UNKNOWN - PT DOES,NOT KNOW [Family Provider] - in less than 1 week
Prescriptions:
New
doxycycline hyclate 100 mg Capsule
100 mg PO Q12 Qty: 8 0RF
guaifenesin 600 mg Tablet Extended Release 12hr
600 mg PO Q12 Qty: 0 0RF
prednisone 10 mg tablet
10 mg PO DIRECTED Qty: 30 0RF
Rx Instructions:
Taper: 40mg daily x 3 days, 3omg daily x 3 days, 20mg daily x 3 days, 10mg daily x 3 days
Continued
albuterol sulfate 90 mcg/actuation Hfa Aerosol Inhaler
2 puff INHALATION QID PRN (Reason: SOB)
Anoro Ellipta 62.5-25 mcg/actuation Blister With Device
1 inh INHALATION DAILY
Patient Comments:
pt states this was stopped
albuterol sulfate 1.25 mg/3 mL solution for nebulization
2.5 mg inhalation QID PRN (Reason: shortness of breath or wheezing) Qty: 75 0RF
fluticasone propion-salmeterol [Wixela Inhub] 250-50 mcg/dose Blister With Device
INHALATION BID
Discontinued
prednisone 20 mg tablet
40 mg PO DAILY Qty: 8 0RF
Patient Comments:
pt states she is not taking this anymore
Discharge Orders:
Discharge Patient (As Directed); Ordered 08/15/24
Ordered By: Gwyn Lara
Discharge Date and Time
Print Language: KINYARWANDA
== END 2024-08-15 14:09 | disposition home or self-care (01) | DRG 191 ==
LOC: 3 WEST ACU 01:44
PROVIDERS: ADMITTING PHYSICIAN Internal Medicine; ATTENDING PHYSICIAN Internal Medicine; CONSULT PHYSICIAN Internal Medicine; EMERGENCY PHYSICIAN Student in an Organized Health Care Education/Training Program
DX: J44.1 Chronic obstructive pulmonary disease with (acute) exacerbation (principal); J98.11 Atelectasis; Z11.52 Encounter for screening for COVID-19; Z87.891 Personal history of nicotine dependence; Z66 Do not resuscitate; Z90.49 Acquired absence of other specified parts of digestive tract; R09.02 Hypoxemia; R06.89 Other abnormalities of breathing
CPT/HCPCS: 71046; 71275; 80048; 80053; 85025; 85027; 85379; 86803; 87502; 87811; 93005; 93306; 94640; 96374; 99285; Q9967

== ENCOUNTER 2025-06-15 16:37 | Inpatient (IN) | payer MEDICARE, SELFPAY ==
[2025-06-15] VITALS (7 sets, daily range): BP systolic 124–147; BP diastolic 75–86; BMI 29.3
--- NOTE | 2025-06-15 10:38 | ED.GENMED ---
ED Provider Triage
<Memo Brown MD, Resident - Last Filed: 06/15/25 15:39>
-
Patient seen by provider in Triage?: Seen in Triage
History of Present Illness
<Memo Brown MD, Resident - Last Filed: 06/15/25 15:39>
General
Chief Complaint: Cold/Flu/URI Symptoms
Source: patient
Exam Limitations: none
Time Seen by Provider: 06/15/25 09:52
History of Present Illness
History of Present Illness:
69 y/o F states that last week she had cough, sneezing, rhinorrhea that subdided by yesterday morning, however later in the day experienced sudden cough with yellow sputum, Wheezing and 2 episodes of vomiting. Associated with shortness of breath.
No chest pain, night sweats, weight loss, abdominal pain, constipation, diarrhea, ear pain/fullness, sore throat, hemoptysis. No recent sick contacts/ recent travel. She has a past medical history of asthma and COPD, quit smoking 3 years ago.
Past History
<Memo Brown MD, Resident - Last Filed: 06/15/25 15:39>
Past History
ED Past Medical History: COPD
ED Past Surgical History: None
Social History
Tobacco: Former smoker
Alcohol: Occasional
Drug: None
Personal: Single
Living: alone
Employment: Retired
Review of Systems
<Memo Brown MD, Resident - Last Filed: 06/15/25 15:39>
Review of Systems
All Other Systems: ROS reviewed and negative except as documented in HPI and ROS
Phy Exam
<Memo Brown MD, Resident - Last Filed: 06/15/25 15:39>
General Physical Exam
General Presentation: well appearing and mild distress
General Skin: warm and dry
General Habitus: elderly
General Mental: alert
Cardiovascular Exam
Cardiovascular Exam: regular rate/rhythm, no edema, no gallop, no JVD, no murmur and normal peripheral pulses
Pulmonary Exam
Pulmonary Exam: other (Bilateral wheezing/ rales on auscultation of the lower lobes )
Cough: productive cough
Gastrointestinal Exam
Gastrointestinal Exam: normal bowel sounds, non tender, soft and non distended
Musculoskeletal Exam
Musculoskeletal Exam: full ROM and no edema
Skin Exam
Skin Exam: normal color, warm/dry and no rash
Course
<Memo Brown MD, Resident - Last Filed: 06/15/25 15:39>
Orders/Labs/Results
Orders:
Orders
06/15/25 10:33
EKG [Electrocardiogram (*1)] Urgent
Reason for Study: Shortness of Breath
Dexamethasone Sod Phosphate [Decadron] 10 mg IV NOW STA
Ipratropium/Albuterol Sulfate [Duoneb] 3 ml INH R NOW STA
Ipratropium/Albuterol Sulfate [Duoneb] 3 ml INH R Q4HPRN PRN
Chest [CR Chest - 2 Views ] Urgent
Comment:
Reason For Exam: productive cough and SOB
06/15/25 10:36
EKG- Treatment ONCE
06/15/25 10:52
CBC/With Diff [Complete Blood Count/With Diff] Urgent
CMP [Comprehensive Metabolic Panel] Urgent
COVID-19 Antigen Urgent
Source: Nasal Swab
Troponin I Urgent
Influenza A+B Rapid Molecular Urgent
GYPSY Source: Nasal Swab
Specimen Description:
06/15/25 13:00
Albuterol Sulfate [Ventolin Nebules] 7.5 mg INH R NOW STA
06/15/25 16:00
CefTRIAXone [Rocephin] 1,000 mg IV Q24H
Doxycycline 100 mg IVPB Q12H Doxycycline Hyclate [Vibramycin] 100 mg 0.9% Sodium Chloride 250 ml [Nss] 250 ml IV Q12H
Abnormal Lab Results
06/15/25
10:52
MCHC 32.3 L g/dL
(33.0-37.0)
Abs Immat Gran (auto) 0.1 H 10^3/uL
(0-0.05)
Absolute Monos (auto) 1.1 H 10^3/uL
(0.1-0.6)
Absolute Eos (auto) 0.9 H 10^3/uL
(0-0.7)
Immature Gran % 1.1 H %
(0-0.5)
Lymphocytes % 18.1 L %
(20.5-51.1)
Monocytes % 10.6 H %
(1.7-9.3)
Eosinophils % 8.3 H %
(0-6)
Glucose 138 H mg/dl
(70-99)
06/15/25 15:26
06/15/25 15:26
Vital Signs
Initial and Last Documented VS:
Initial Vital Signs
Temp Pulse Resp BP Pulse Ox
97.7 F 101 20 146/83 94
06/15/25 09:42 06/15/25 09:42 06/15/25 09:42 06/15/25 09:42 06/15/25 09:42
Last Documented Vital Signs
Temp Pulse Resp BP Pulse Ox
97.7 F 110 19 147/81 93
06/15/25 09:42 06/15/25 15:15 06/15/25 15:15 06/15/25 10:53 06/15/25 15:15
<Markus Wade MD - Last Filed: 06/15/25 15:15>
Orders/Labs/Results
Orders:
Orders
06/15/25 10:33
EKG [Electrocardiogram (*1)] Urgent
Reason for Study: Shortness of Breath
Dexamethasone Sod Phosphate [Decadron] 10 mg IV NOW STA
Ipratropium/Albuterol Sulfate [Duoneb] 3 ml INH R NOW STA
Ipratropium/Albuterol Sulfate [Duoneb] 3 ml INH R Q4HPRN PRN
Chest [CR Chest - 2 Views ] Urgent
Comment:
Reason For Exam: productive cough and SOB
06/15/25 10:36
EKG- Treatment ONCE
06/15/25 10:52
CBC/With Diff [Complete Blood Count/With Diff] Urgent
CMP [Comprehensive Metabolic Panel] Urgent
COVID-19 Antigen Urgent
Source: Nasal Swab
Troponin I Urgent
Influenza A+B Rapid Molecular Urgent
GYPSY Source: Nasal Swab
Specimen Description:
06/15/25 13:00
Albuterol Sulfate [Ventolin Nebules] 7.5 mg INH R NOW STA
06/15/25 16:00
CefTRIAXone [Rocephin] 1,000 mg IV Q24H
Doxycycline 100 mg IVPB Q12H Doxycycline Hyclate [Vibramycin] 100 mg 0.9% Sodium Chloride 250 ml [Nss] 250 ml IV Q12H
Abnormal Lab Results
06/15/25
10:52
MCHC 32.3 L g/dL
(33.0-37.0)
Abs Immat Gran (auto) 0.1 H 10^3/uL
(0-0.05)
Absolute Monos (auto) 1.1 H 10^3/uL
(0.1-0.6)
Absolute Eos (auto) 0.9 H 10^3/uL
(0-0.7)
Immature Gran % 1.1 H %
(0-0.5)
Lymphocytes % 18.1 L %
(20.5-51.1)
Monocytes % 10.6 H %
(1.7-9.3)
Eosinophils % 8.3 H %
(0-6)
Glucose 138 H mg/dl
(70-99)
06/15/25 15:26
06/15/25 15:26
Vital Signs
Initial and Last Documented VS:
Initial Vital Signs
Temp Pulse Resp BP Pulse Ox
97.7 F 101 20 146/83 94
06/15/25 09:42 06/15/25 09:42 06/15/25 09:42 06/15/25 09:42 06/15/25 09:42
Last Documented Vital Signs
Temp Pulse Resp BP Pulse Ox
97.7 F 110 19 147/81 93
06/15/25 09:42 06/15/25 15:15 06/15/25 15:15 06/15/25 10:53 06/15/25 15:15
<Memo Brown MD, Resident - Last Filed: 06/15/25 15:39>
MDM/Problems Addressed
Differential Diagnosis Includes:
COPD exacerbation, Heart failure, Bronchitis, Viral URI, Pneumonia
MDM/Problems Addressed:
69 y/o Female presents with productive cough, wheezing, and nausea/vomiting. Bilateral wheezing/ crackles heard bilaterally lower lobes.
- Ordered 02 therapy for patient
- Ordered DuoNeb and Decadron along with albuterol to help reduce inflammation
- CMP, CBC, chest xray,, troponins, and EKG all normal
-Will admit to ED hospitalist team as patients cough is getting worse, her bilateral rales are also getting worse, no signs of clinical improvement after our initial treatment regime. Will start her on rocephin and Doycycline. Patient states that 30
years ago she had lip swelling from penicillin when asked about allergy.
<Memo Brown MD, Resident - Last Filed: 06/15/25 15:39>
*Pulse Oximetry
SaO2: 94
Oxygen Mode of Delivery: Room air
Patient hypoxic: no
*Critical Care Note
Total Time (30-74mins, 75-104mins- exclusive of procedures): Not Applicable
ED Attending Note
<Memo Brown MD, Resident - Last Filed: 06/15/25 15:39>
-
Portions of this chart may have been created with voice recognition software.� Occasional wrong word or��sound alike� substitutions may have occurred due to the inherent limitations of voice recognition software.
<Markus Wade MD - Last Filed: 06/15/25 15:15>
ED Attending Note
Patient seen and examined by attending physician: Yes
I performed the substantive portion of visit, reviewed & personally made and approve the management plan that is documented in note by myself or VIVEK.: Yes
ED Attending Note:
69-year-old female cough congestion sputum. Some mild shortness of breath. Symptoms started 3 to 4 days ago. No chest pain no pleuritic pain
On exam patient is nontoxic in no distress. She is lying flat. Able to speak comfortably lying flat. Mild basilar wheezing bilaterally. No respiratory distress however. Heart regular rate and rhythm. Abdomen nontender. Warm and dry.
Perfusing well. EKG with nonspecific changes. Chest x-ray negative. Clinically infectious syndrome with COPD exacerbation. Stable.
Patient rechecked. Currently receiving an hour-long neb. Still diffuse expiratory wheezing and actually looks worse than she did previously. Warrants inpatient management.[id number]...
Discharge Plan
Departure
Patient Disposition: Admit
Date of Disposition: 06/15/25
Time of Disposition: 15:28
Presentation/result/management discussed w/ accepting MD/DO: Hospitalist
Condition: Fair
Discharge Problem:
COPD with acute exacerbation, Dyspnea, Cough productive of purulent sputum
Prescriptions:
No Action
albuterol sulfate 90 mcg/actuation Hfa Aerosol Inhaler
2 puff INHALATION QID PRN (Reason: SOB)
Anoro Ellipta 62.5-25 mcg/actuation Blister With Device
1 inh INHALATION DAILY
Patient Comments:
pt states this was stopped
albuterol sulfate 1.25 mg/3 mL solution for nebulization
2.5 mg inhalation QID PRN (Reason: shortness of breath or wheezing) Qty: 75 0RF
fluticasone propion-salmeterol [Wixela Inhub] 250-50 mcg/dose Blister With Device
INHALATION BID
doxycycline hyclate 100 mg Capsule
100 mg PO Q12 Qty: 8 0RF
guaifenesin 600 mg Tablet Extended Release 12hr
600 mg PO Q12 Qty: 0 0RF
prednisone 10 mg tablet
10 mg PO DIRECTED Qty: 30 0RF
Rx Instructions:
Taper: 40mg daily x 3 days, 3omg daily x 3 days, 20mg daily x 3 days, 10mg daily x 3 days
Referrals:
UNKNOWN - PT DOES,NOT KNOW [Family Provider]
Interventions
Interventions:
*Risk Screen - Suicide Last Done: 06/15/25 09:42
*General Assessment Last Done: 06/15/25 09:42
*Neglect/Abuse Screening Last Done: 06/15/25 10:54
*ED- Fall Risk Assessment Last Done: 06/15/25 10:54
*ED COVID-19 Vaccine History Last Done: 06/15/25 10:54
*ED Influenza Vaccine History Last Done: 06/15/25 10:54
ED- Pulmonary Assessment Last Done: 06/15/25 10:54
Discharge Date and Time
Print Language: BRITISH
[2025-06-15 11:06] LABS: Hematocrit 43.9 % (37.0-47.0); Hemoglobin 14.2 g/dL (12.0-16.0); Mean Corp Hgb Conc. 32.3 g/dL (33.0-37.0); Mean Corpuscular Volume 85.6 fL (81.0-99.0); Nucleated Red Blood Cells % 0 %; Platelet Count 305 10^3/uL (130-400); Red Cell Dist. Width 14.0 % (11.5-14.5)
[2025-06-15] MEDS: DUONEB 3 ML INH (11:17)
[2025-06-15] MEDS: DECADRON 10 MG IV (11:17)
[2025-06-15 11:19] LABS: ALT (SGPT) 19 U/L (0-35); AST (SGOT) 18 U/L (14-36); Albumin 3.9 g/dl (3.5-5.0); Alkaline Phosphatase 93 U/L (38-126); Blood Urea Nitrogen 11 mg/dl (7-17); Calcium 9.1 mg/dl (8.4-10.2); Carbon Dioxide 27 mmol/L (22-30); Chloride 107 mmol/L (98-107); Estimated Creatinine Clearance 81 ml/min; Glucose 138 mg/dl (70-99); Potassium 3.9 mmol/L (3.5-5.1); Sodium 139 mmol/L (135-145); Total Protein 6.9 g/dl (6.3-8.2); eGFR > 60.00
[2025-06-15 11:25] LABS: COVID-19 Antigen Negative (Negative)
[2025-06-15 11:29] LABS: Troponin I < 0.012 ng/ml
[2025-06-15] MEDS: VENTOLIN NEBULES 7.5 MG INH (13:30)
--- NOTE | 2025-06-15 15:31 | W.PN.UPDATE ---
Update Note
Progress Note Update
This note serves as an addendum to the H&P by PGY3
HPI
69F Former smoker HX Asthma/ COPD seen at ER
- recent URI symptoms
- productive cough with sputum and wheezing
- 2 vomiting episodes following a 5 day URI. S
- Vitals stable and afebrile.
- Not improved aftera course of Decadron, DuoNeb , albuterol
HANNAH initiated IV Rocephin and doxycycline
PHX; see above
Relevant VS
Temp Pulse Resp BP Pulse Ox
97.7 F 110 19 147/81 93 on RA
06/15/25 09:42 06/15/25 15:15 06/15/25 15:15 06/15/25 10:53 06/15/25 15:15
PE
Gen: mild distress
HEENT: moist OM
Neck: supple , no JVD
Lungs: Bilateral diffuse biphasic wheezing, cough with inspiration
Cor: RRR S1 S2
Abdomen:�soft benign
UNDERGRADUATE ADVISOR: AAO3, NFND
MS: no edema
Psych: normal affect
Relevant data�
06/15/25
10:52
WBC 10.5
Hgb 14.2
Plt Count 305
Monocytes % 10.6 H
Eosinophils % 8.3 H
Potassium 3.9
Carbon Dioxide 27
Creatinine 0.7
eGFR > 60.00
NEG TPNI
NEG Covid. NEG Flu A & B
EKG
NORMAL SINUS RHYTHM
NONSPECIFIC T WAVE ABNORMALITY
ABNORMAL ECG
WHEN COMPARED WITH ECG OF 14-Aug-2024 07:34,
NO SIGNIFICANT CHANGE WAS FOUND
Confirmed by MD HAZEL, PEYTON ([id number]) on 06/15/2025 12:01:58 PM
06/15/25 CXR
No evidence of active cardiopulmonary disease
08/13/24 CTA chest:
Some mild dependent subsegmental atelectasis and mild right upper lobe scarring. No focal parenchymal consolidation, pneumothorax or pleural effusion. Pulmonary interstitium at least top normal, cannot exclude minor interstitial edema or
interstitial pneumonitis. Prior cholecystectomy.
08/14/24 TTE
1. Normal left ventricular size, wall thickness and systolic function. No
regional wall motion abnormalities are seen. LV ejection fraction is 64% by
volumetric assessment. Normal diastolic function.
2. Normal right ventricular size and function.
3. No significant valvular abnormalities.
4. No pericardial effusion.
Last hospitalist admission:Date of Admission: 08/13/24 - Date of Discharge: 08/15/24
Primary diagnoses: Acute hypoxemic RI due to acute exacerbation of COPD
ASSESSMENT & PLAN
Acute COPD flare +/- with asthmatic bronchitis following URI
- Remote HX Angioedema of Lips and OM with PCN
- recent colored sputum production - no WCC, no fever , nl CXR
- mild hypereosinophilia - due to suspect element of Asthma
- COVID/Flu NEG
- IV Solumedrol 20mg q12h or IV Decadron 4mg q2h
- Received one dos of IV CFTZ at ER
- No indication for ABx - can observe for now
- Nebs qid and PRN
- Mucinex 60mg q12h
- PRN O2 to keep POX > 93
- Pul consult
Posttussive emesis CALL CENTER SUPPORT REPRESENTATIVE
- no more emesis
Lt sided SSCP with pleuritic quality suspect viral pleuritis ?
- nl EKG, nl TPNI
- Low index of suspicion for acute PE with pleurisy
- check D Dimer - if it is significant , will consider CTC for PE protocol
Former smoker for 3 yrs (40 PPY HX)
DVT Px: LMWH
Full Code
IP MS
[2025-06-15] MEDS: ROCEPHIN 1000 MG IV (15:39)
[2025-06-15] MEDS: VIBRAMYCIN 260 MG IV (15:56)
--- NOTE | 2025-06-15 16:24 | HPS.HSE ---
Family Physician
-
Family Physician: NOT KNOW UNKNOWN - PT DOES
Chief Complaint
-
Shortness of breath and cough.
History of Present Illness
69-year-old female with PMHx significant for COPD presents to the ER for evaluation of shortness of breath and cough. Patient reports that her symptoms started with nasal congestion, cough and yellowish sputum production on Saturday in the a.m., she
started taking guanfacine as needed for relief and her symptoms gradually improved by Saturday AM. She never had fevers in the last 3 days. Although she transiently felt better into Saturday morning, she started having cough with copious amounts of
greenish sputum production and shortness of breath that is associated with some left-sided chest pain. Her left-sided chest pain started about afternoon yesterday, radiates into her left shoulder blade, 7/10 in intensity, and worsens with deep
inspirations. She also reports the resolution of facial congestion now, and 2 episodes of vomiting since a.m. today. One of her emesis is posttussive containing greenish sputum, and the other 1 had all the food in it. No bloody emesis, no
hemoptysis, no pedal edema, no pain in the calf, denies fevers, chills, palpitations, syncope or near syncopal episodes, orthopnea, PND, constipation, diarrhea, dysuria, sick contacts or recent travel.
Medical History
Past Medical History
Past Medical History: Reports Other (COPD)
Past Surgical History: Reports Other (Cholecystectomy,)
Social History
Tobacco: Former Smoker (05-wqpe-vpet smoking history, quit smoking in April 2022)
Alcohol: Occasional
Drug: None
Personal:
Living: With Family
Employment: Retired
Family History
Family History: Not pertinent
Allergies / Home Medications
Allergies reflects when Allergies were last updated in [facility].
Home Medications with original date entered in [facility]
Allergy/Medication List:
Allergies
Allergy/AdvReac Type Severity Reaction Status Date / Time
azithromycin Allergy Nausea / Verified 06/15/25 09:43
Vomiting
Cephalosporins Allergy Unknown Verified 06/15/25 09:43
penicillin G Allergy Unknown Verified 06/15/25 09:43
Penicillins Allergy Unknown Verified 06/15/25 09:43
Home Medications
albuterol sulfate 90 mcg/actuation aerosol inhaler 2 puff inhalation R QIDPRN PRN SOB 08/07/24
fluticasone fur. 200 mcg-umeclid 62.5 mcg-vilant 25 mcg inhalat.powder (Trelegy Ellipta) 1 inh inhalation R DAILY 06/15/25
guaifenesin 600 mg tablet, extended release 12 hr 600 mg PO [id number] PRN cough 06/15/25
ibuprofen 200 mg tablet (Advil) 400 mg PO Q8HPRN PRN mild pain 06/15/25
Review of Systems
-
History Source: Patient
Constitutional: Reports Fatigue
EENT: Reports Runny Nose
Respiratory: Reports Cough and Trouble Breathing
Cardiac: Reports Chest Pain; Denies Diaphoresis, Palpitations or Syncope
Abdomen/GI: Reports No Symptoms
: Reports No Symptoms
Musculoskeletal: Reports No Symptoms
Skin: Reports No Symptoms
Neurological: Reports No Symptoms
Endocrine: Reports No Symptoms
Psych: Reports No Symptoms
Physical Exam
Vital Signs
Vital Signs
Temp Pulse Resp BP Pulse Ox
98.1 F 112 22 135/86 94
06/15/25 16:00 06/15/25 16:00 06/15/25 16:00 06/15/25 16:00 06/15/25 16:00
Physical Exam
General: Pain and Other (Increased work of breathing.)
HEENT: Moist mucous membranes
Respiratory: Wheezes (Both inspiratory and expiratory across all lung lobes.); No Rales, Rhonchi or Crackles
Cardiac: S1/S2 and Regular Rhythm; No Murmur, Rub or Gallop
GI: Soft, Non Tender, Non Distended and Normal Bowel Sounds
Genito-urinary: No Costovertebral angle tend or Suprapubic Tube
Musculoskeletal: No Clubbing, No Cyanosis and No Edema
Skin: Warm
Neuro: AO x 3, No Motor Deficits and Nonfocal/grossly intact
Psych: Calm
Laboratory Results
-
06/15/25 15:26
06/15/25 15:26
Laboratory Results
Total Bilirubin Cancelled 06/15/25 15:26
AST Cancelled 06/15/25 15:
ALT Cancelled 06/15/25 15:
Alkaline Phosphatase Cancelled 06/15/25 15:26
Troponin I < 0.012 ng/ml 06/15/25 10:52
Data Reviewed
-
Diagnostic Radiology: Image Personally Visualized and interpreted, Report Reviewed by me, Discussed with Physician and Discussed with Patient
Lab Data: Labs Reviewed by me, Discussed with Physician and Discussed with Patient
Impression/Plan
-
IMPRESSION: 69-year-old female with PMHx significant for COPD and cholecystectomy presents to the emergency room for evaluation of acute onset cough and shortness of breath. She is diagnosed with acute bronchitis/exacerbation of COPD, and reactive
airway disease.
PLAN:
# Acute COPD exacerbation-
Acute bronchitis with some component of reactive airway disease
[facility]
S/p IV Decadron, nebulizations in the ER along with 1 dose of ceftriaxone and doxycycline.
No evidence of pneumonia on clinical presentation, no leukocytosis and chest x-ray negative -Will hold off on antibiotics for now.
Expect rebound tachycardia with DuoNebs.
Will start the patient on tapering steroid dose.
Add expectorant and albuterol Q4 hourly.
Less likely PE, obtain D-dimer.
Remote history of angioedema with penicillins and cephalosporins, 1 dose of ceftriaxone tolerated well in the ER.
Monitor for angioedema for next 2 to 6 hours.
Eosinophilia at previous admission as well as today.
Obtain pulmonology consult, appreciate inputs.
Former smoker, quit smoking 3 years ago.
Continue home inhaler Trelegy Ellipta.
# DVT prophylaxis-
Lovenox
# CODE STATUS-
Full code.
Workup-
Chest x-ray-06/15/2025-no acute cardiopulmonary process
Chest CT-08/13/2024-mild dependent subsegmental atelectasis and mild right upper lobe scarring, possible interstitial pneumonitis could not exclude minor interstitial edema.
Echo-08/14/2024-
CONCLUSIONS
1. Normal left ventricular size, wall thickness and systolic function. No
regional wall motion abnormalities are seen. LV ejection fraction is 64% by
volumetric assessment. Normal diastolic function.
2. Normal right ventricular size and function.
3. No significant valvular abnormalities.
4. No pericardial effusion.
[2025-06-15 16:50] LABS: D-Dimer 1.10 ug/mlFEU (0.00-0.50)
--- NOTE | 2025-06-15 16:57 | EDCM ---
CM reviewed chart and met with pt bedside in ED. Lives alone in third floor apartment, has elevator access.
Independent in ADLs, personal care and ambulation at baseline. No assistive devices, no DME. Still driving.
Her son lives in [place] and provides support.
Confirms prescription coverage.
Hx VN and SNF in [place] many years ago.
PCP: [facility]
Pharmacy: [facility]
Anticipate discharge home, CM will continue to follow for any discharge planning needs.
[2025-06-15] MEDS: TYLENOL 650 MG PO (17:20)
--- NOTE | 2025-06-15 18:40 | PTCARENOTE ---
Received pt from ER via stretcher, accompanied by ER staff. Pt AAO x3, ZURITA well, ambulatory to bed, no c/o weakness/dizziness. VSS. ON room air- pulse ox 96%; pt with (+) ROLAND/tachypnea; wheezes throughout all lung he. Pt c/o Lt sided sharp
pain with deep inspiration. Abd soft, sl rounded, to start regular diet. Pt voided in BR upon arrival to unit. Oriented to 4East, currently resting in bed. Will continue to monitor.
[2025-06-15] MEDS: SYMBICORT 160/4.5 MCG INHALER 2 PUFF INH (19:32)
[2025-06-15] MEDS: MUCINEX 600 MG PO (20:25)
[2025-06-15] MEDS: DECADRON 4 MG IV (20:25)
[2025-06-15] MEDS: MELATONIN 5 MG PO (22:14)
[2025-06-16 07:10] VITALS: BP 160/94
--- NOTE | 2025-06-16 07:47 | W.PN.HOSP.TC ---
Today's Communication/Plan
-
Plan reviewed with attending
Continue home medications.
sent home on steroid taper
Assessment / Plan
Assessment / Plan
69yoF PMH COPD presenting with COPD exacerbation in setting of viral prodrome, improved today.
AFVSS Trop WNL, D dimer mildly elevated in setting of COPD exac 1.10, covid neg, CXR clear, ECG normal.
Pt is feeling significantly better after steroid, indicative of COPD exacerbation. She states she had a prior exacerbation the same time last year. Discussion focused on multifactorial aspects of this possibly induced by allergies, viral prodrome,
etc.
#COPD exacerbation
- Steroids, Inhaler
- Cont home medications
Anticipated Discharge: Today
Subjective/Interval History
-
Date of Service: June 16, 2025
69yoF PMH COPD presenting with SOB + cough. She began having viral prodrome last week, resolved by Saturday morning and then began having dark green sputum, presenting with SOB not resolved with rescue inhaler.
Pt reports feeling 90% better today almost at baseline. Deneis SOB, abdominal pain, lightheadedness, headaches, blurry vision.
Objective Data
-
Labs:
Laboratory Results
06/16/25
06:00
WBC Pending
Hgb Pending
Hct Pending
Plt Count Pending
Sodium Pending
Potassium Pending
Chloride Pending
Carbon Dioxide Pending
BUN Pending
Creatinine Pending
Glucose Pending
Calcium Pending
Vital Signs:
Vital Signs
Temp Pulse Resp BP Pulse Ox
97.4 F 86 15 137/83 93
06/15/25 23:58 06/15/25 23:58 06/15/25 23:58 06/15/25 23:58 06/16/25 02:00
I&O
06/15/25 06/16/25 06/17/25
06:59 06:59 06:59
Intake Total 480 / 480
Balance 480 / 480
Review of Systems
-
History Source: Patient
All other systems: Reviewed and negative
Physical Exam
-
General: Well Developed, Well Nourished, No Apparent Distress and Comfortable
HEENT: Normocephalic, Atraumatic and Moist Mucous Membranes
Respiratory: Clear to Auscultation and Wheezes (mild)
Cardiac: Regular Rhythm and S1/S2
GI: Soft, Nontender and Nondistended
Musculoskeletal: No Edema
Skin: Warm and Dry
Neuro: AO x 3, No Motor Deficits and Nonfocal/Grossly Intact
Psych: Calm
[2025-06-16 08:16] LABS: Hematocrit 41.5 % (37.0-47.0); Hemoglobin 13.3 g/dL (12.0-16.0); Mean Corp Hgb Conc. 32.0 g/dL (33.0-37.0); Mean Corpuscular Volume 86.5 fL (81.0-99.0); Nucleated Red Blood Cells % 0 %; Platelet Count 328 10^3/uL (130-400); Red Cell Dist. Width 14.0 % (11.5-14.5)
[2025-06-16] MEDS: SPIRIVA RESPIMAT 2.5 MCG 2 PUFF INH (08:18)
[2025-06-16] MEDS: SYMBICORT 160/4.5 MCG INHALER 2 PUFF INH (08:18)
[2025-06-16] MEDS: MUCINEX 600 MG PO (08:35)
[2025-06-16] MEDS: DECADRON 4 MG IV (08:35)
[2025-06-16 08:40] VITALS: BP 160/94
[2025-06-16 09:01] LABS: Blood Urea Nitrogen 13 mg/dl (7-17); Calcium 9.4 mg/dl (8.4-10.2); Carbon Dioxide 25 mmol/L (22-30); Chloride 108 mmol/L (98-107); Estimated Creatinine Clearance 94 ml/min; Glucose 153 mg/dl (70-99); Potassium 4.5 mmol/L (3.5-5.1); Sodium 140 mmol/L (135-145); eGFR > 60.00
--- NOTE | 2025-06-16 11:11 | CON.PUL ---
Consultation
Consultation Request
Date/Time Consultation Requested: 06/16/2025
Date/Time Consultation Performed: 06/16/2025
Requesting Provider: Dr. Sanchez
Performing Provider: Dr. Eyal Nugent
Reason for Consultation: Acute exacerbation of COPD
Medical History
-
History of Present Illness:
Patient is a 69-year-old female with past medical history of COPD not on home O2, presenting to the emergency department with worsening cough, shortness of breath. Symptoms started since last Saturday. Initially with upper respiratory symptoms and
yellow phlegm production.
Symptoms progressed. She did develop some posttussive emesis. Sputum color and volume has been increasing. She did report developing some left sided chest pain worse with inspiration.
Denied any fevers or chills.
Denies any sick contacts
Denies leg edema, PND orthopnea leg edema.
In the emergency room patient not hypoxemic.
Chest x-ray without acute infiltrate.
She was admitted for evaluation and treatment of acute exacerbation of COPD.
-
Former smoker, stopped smoking about 1 year ago.
Past Medical History
Past Medical History: Other (see list below)
Social History
Tobacco: Former Smoker
Alcohol: None
Drug: None
Family History
Family History: Reviewed & Not Pertinent
Allergies / Home Medications
Allergies
Allergy/AdvReac Type Severity Reaction Status Date / Time
azithromycin Allergy Nausea / Verified 06/15/25 09:43
Vomiting
Cephalosporins Allergy Tongue Verified 06/15/25 16:32
Swelling
penicillin G Allergy Unknown Verified 06/15/25 09:43
Penicillins Allergy Unknown Verified 06/15/25 09:43
Home Medications
�Medication �Instructions �Recorded �Confirmed �Last Taken �Type
albuterol sulfate 90 mcg/actuation 2 puff inhalation R QIDPRN PRN SOB 08/07/24 06/15/25 06/15/25 08:00 History
aerosol inhaler
fluticasone fur. 200 mcg-umeclid 1 inh inhalation R DAILY 06/15/25 06/15/25 06/15/25 08:00 History
62.5 mcg-vilant 25 mcg Lung/Breathing Issues
inhalat.powder (Trelegy Ellipta)
guaifenesin 600 mg tablet, 600 mg PO [id number] PRN cough 06/15/25 06/15/25 06/14/25 20:00 History
extended release 12 hr
ibuprofen 200 mg tablet (Advil) 400 mg PO Q8HPRN PRN mild pain 06/15/25 06/15/25 06/14/25 08:00 History
Review of Systems
Vitals / Labs / Diagnostic Testing
Vital Signs
Temp Pulse Resp BP Pulse Ox
97.6 F 85 20 160/94 92
06/16/25 07:10 06/16/25 08:40 06/16/25 08:40 06/16/25 08:40 06/16/25 07:10
Lab Data
06/16/25 07:49
06/16/25 07:49
Microbiology
06/15/25 10:52 Nasal Swab Influenza Types A & B (EDIL) - Final
Negative for Influenza A & B, NAAT
Negative results must be combined with clinical observations
and patient history.
Nucleic Acid Amplification test (NAAT)performed on the
[email or web address] platform.
Diagnostic Testing:
Assessment
-
Patient is a 68-year-old female with past medical history of COPD not on home O2, diagnosed 1 year ago presenting to the emergency department with worsening cough, shortness of breath after recent treatment for COPD exacerbation on 08/07 (she was
seen in ER and given neb treatment and prednisone taper).
AECOPD-suspect acute tracheobronchitis. .
Negative cardiac troponin
Negative influenza/negative COVID
Left-sided pleuritic type chest pain
Peripheral eosinophilia
Conditions present HEAD CHARGER
COPD-moderate, last seen in [place] Jun 2023.
Last seen in our office 05/26/2025 by DANIEL Tavera/Dr. JUNIOR-she was given some prednisone and azithromycin
Currently on Trelegy
Pulmonary function testing 04/22/2025: FEV1 1.41 L - 60%, FVC 2.17 L - 70%, FEV1/FVC ratio 65%. Total lung capacity 74%, DLCO 44%. Moderate airflow obstruction with moderate gas exchange abnormality consistent with COPD/emphysema.
Last acute exacerbation 07/2024
Former smoker, 1 PPD for 40 years
Cholecystectomy
Plan
Acute exacerbatio of COPD: Likely from acute tracheobronchitis -viral/or bacterial --given that her chest x-ray is clear.
Cannot rule out allergic component based on prior peripheral eosinophilia. Discussed with patient-perhaps in the outpatient setting singular may be of benefit.
-
Dramatic improvement from overnight. Was able to ambulate around the [place] without shortness of breath. Feels much better. Would like to go home if possible.
Afebrile
Current leukocytosis likely driven by steroids.
Not hypoxemic
-
Agree with current regiment with IV corticosteroid-transition to prednisone 40 mg and decrease by 10 mg every 72 hours to off.
Currently on inhaler therapy
Initially on antibiotics currently on hold. Monitor for now.
Recommend short-term follow-up in our office in the next 2 weeks.
-
With peripheral eosinophilia asthma overlap should be considered in the outpatient setting.
If there are recurrent exacerbations and inability to taper down the steroids she should be considered for biologic therapy-interleukin inhibitors.
-
Smoking history noted
Smoking cessation--stopped 1 year ago
Patient is due for repeat CAT scan 07/2025 for cancer surveillance. This has been discussed in the outpatient setting. Notes.
Discussed with patient, warning signs including worsening shortness of breath, chest tightness to return to the emergency room. She is eager to go home today as she has clinically improved. Able to ambulate around the [place] without significant
symptoms.
Prolonged prednisone taper recommended
Short-term follow-up in our office, I will arrange.
Diagnostic Data
Chest X-Ray: 08/13/24 No acute disease of the chest
08/07/24- Thin vertical linear density within the medial aspect of the left lower lung, compatible with linear atelectasis or scar. Deformity of the left posterolateral sixth rib, likely an old fracture. Please correlate with any history of recent
injury or localized symptoms in this region. There is no evidence of pneumothorax or pleural effusion.
Chest x-ray-06/15/2025-no acute cardiopulmonary process
Chest CT-08/13/2024-mild dependent subsegmental atelectasis and mild right upper lobe scarring, possible interstitial pneumonitis could not exclude minor interstitial edema.
Echo-08/14/2024-
CONCLUSIONS
1. Normal left ventricular size, wall thickness and systolic function. No
regional wall motion abnormalities are seen. LV ejection fraction is 64% by
volumetric assessment. Normal diastolic function.
2. Normal right ventricular size and function.
3. No significant valvular abnormalities.
4. No pericardial effusion.
Reports and relevant images were personally reviewed.
[2025-06-16] MEDS: TYLENOL 650 MG PO (13:43)
--- NOTE | 2025-06-16 14:47 | W.DCSUMMARY ---
Documented by User: Mariaelena Peng MD, Resident 06/16/25 14:50
Discharge Summary
Discharge Data
Date of Admission: 06/15/25
Date of Discharge: 06/16/25
-
Pending Results: No
Hospital Course
69yoF PMH COPD presenting with COPD exacerbation in setting of viral prodrome, improved today. Pt received dose of ceftriaxone and doxycycline in ED. Started on dexamethasone, mucinex, duonebs.
AFVSS Trop WNL, D dimer mildly elevated in setting of COPD exac 1.10, covid neg, CXR clear, ECG normal.
Pt is feeling significantly better after steroid dexamethasone 4mg, indicative of COPD exacerbation. She states she had a prior exacerbation the same time last year. Discussion focused on multifactorial aspects of this possibly induced by allergies,
viral prodrome, etc.
Received flu vaccine. F/u with pulmonology outpt.
#COPD exacerbation
- Steroids, Inhaler, Symbicort, spiriva in place of home Trelegy.
- Cont home medications
Anticipated Discharge: Today
Discharge Plan
-
Patient Disposition: Home (Routine Discharge)
Discharge Diagnosis/Procedures: COPD exacerbation
Peripheral eosinophilia
Condition: Fair
Diet: No restrictions
Activity: As tolerated
Driving Restrictions: As prior to admission
Bathing Restrictions: None
Blood Work: None
Others Tests: Follow-up with endo tech for pulmonary function testing, repeat CT scan of chest, and 6-minute walk test
Activity Restrictions/Additional Instructions:
Ask your endo tech if you are eligible for a medication called dupilumab (Dupixent, and medicine shown to help with people with COPD and eosinophilia)
Referrals:
[facility] [Outside, Family Practice] - in less than 1 week
Hermelinda Mason CRNP [Specified Professional Personl, Pulmonary Medicine] - in one to two weeks
Referral Note: AECOPD
UNKNOWN - PT DOES,NOT KNOW [Family Provider]
Additional Discharge Medication Instructions: Continue prednisone 40 mg and taper by 10 mg every 3 days until you complete the course
Resume Trelegy Ellipta 1 inhalation daily
Continue as needed albuterol sulfate MDI for shortness of breath or wheezing
Caution with overuse of Advil as it may affect your kidneys and lining of your stomach. Can alternate ibuprofen with Tylenol 650 mg, which can be used up to 4 times daily
Prescriptions:
New
prednisone 10 mg tablet
See Taper PO DIRECTED Qty: 30 0RF
Taper: Prednisone DC Starting at 40 mg daily
40 mg Daily for 3 Days and 0 Hour
30 mg Daily for 3 Days and 0 Hour
20 mg Daily for 3 Days and 0 Hour
10 mg Daily for 3 Days and 0 Hour
Continued
albuterol sulfate 90 mcg/actuation Hfa Aerosol Inhaler
2 puff INHALATION R QIDPRN PRN (Reason: SOB)
ibuprofen [Advil] 200 mg Tablet
400 mg PO Q8HPRN PRN (Reason: mild pain)
Trelegy Ellipta 200-62.5-25 mcg Blister With Device
1 inh INHALATION R DAILY
guaifenesin 600 mg tablet extended release 12hr
600 mg PO [id number] PRN (Reason: cough)
Discharge Orders:
Discharge Patient (As Directed); Ordered 06/16/25
Ordered By: Rafael Ramírez
Discharge Date and Time
Print Language: SERBIAN

Documented by User: Rafael Ramírez, 06/16/25 14:55
Discharge Summary
Discharge Data
Date of Admission: 06/15/25
Date of Discharge: 06/16/25
Total time spent discharging patient (in min): 33
Discharge Plan
-
Patient Disposition: Home (Routine Discharge)
Discharge Diagnosis/Procedures: COPD exacerbation
Peripheral eosinophilia
Condition: Fair
Diet: No restrictions
Activity: As tolerated
Driving Restrictions: As prior to admission
Bathing Restrictions: None
Blood Work: None
Others Tests: Follow-up with endo tech for pulmonary function testing, repeat CT scan of chest, and 6-minute walk test
Activity Restrictions/Additional Instructions:
Ask your endo tech if you are eligible for a medication called dupilumab (Dupixent, and medicine shown to help with people with COPD and eosinophilia)
Referrals:
[facility] [Outside, Family Practice] - in less than 1 week
Hermelinda Mason CRNP [Specified Professional Personl, Pulmonary Medicine] - in one to two weeks
Referral Note: AECOPD
UNKNOWN - PT DOES,NOT KNOW [Family Provider]
Additional Discharge Medication Instructions: Continue prednisone 40 mg and taper by 10 mg every 3 days until you complete the course
Resume Trelegy Ellipta 1 inhalation daily
Continue as needed albuterol sulfate MDI for shortness of breath or wheezing
Caution with overuse of Advil as it may affect your kidneys and lining of your stomach. Can alternate ibuprofen with Tylenol 650 mg, which can be used up to 4 times daily
Prescriptions:
New
prednisone 10 mg tablet
See Taper PO DIRECTED Qty: 30 0RF
Taper: Prednisone DC Starting at 40 mg daily
40 mg Daily for 3 Days and 0 Hour
30 mg Daily for 3 Days and 0 Hour
20 mg Daily for 3 Days and 0 Hour
10 mg Daily for 3 Days and 0 Hour
Continued
albuterol sulfate 90 mcg/actuation Hfa Aerosol Inhaler
2 puff INHALATION R QIDPRN PRN (Reason: SOB)
ibuprofen [Advil] 200 mg Tablet
400 mg PO Q8HPRN PRN (Reason: mild pain)
Trelegy Ellipta 200-62.5-25 mcg Blister With Device
1 inh INHALATION R DAILY
guaifenesin 600 mg tablet extended release 12hr
600 mg PO [id number] PRN (Reason: cough)
Discharge Orders:
Discharge Patient (As Directed); Ordered 06/16/25
Ordered By: Rafael Ramírez
Discharge Date and Time
Print Language: SERBIAN
--- NOTE | 2025-06-16 15:37 | PTCARENOTE ---
Received patient this am AAOx3. Pt OOB ambulating in room and hallway independently with a steady gait. Tolerated diet well. pt complained of a headache. Medicated with Tylenol with relief. Made patient comfortable. Cont to assess patient status. Pt
for discharge today.
[2025-06-17 20:32] LABS: Hepatitis C Antibody Reactive (Negative)
== END 2025-06-16 16:01 | disposition home or self-care (01) | DRG 192 ==
LOC: 4 EAST ACU 16:37
PROVIDERS: Student in an Organized Health Care Education/Training Program; ADMITTING PHYSICIAN Internal Medicine; ATTENDING PHYSICIAN Internal Medicine; CONSULT PHYSICIAN Internal Medicine Critical Care Medicine; EMERGENCY PHYSICIAN Emergency Medicine
DX: J44.1 Chronic obstructive pulmonary disease with (acute) exacerbation (principal); D72.10 Eosinophilia, unspecified; J43.9 Emphysema, unspecified; R09.02 Hypoxemia; Z79.899 Other long term (current) drug therapy; Z87.891 Personal history of nicotine dependence; Z88.1 Allergy status to other antibiotic agents; Z88.0 Allergy status to penicillin
CPT/HCPCS: 71046; 80048; 80053; 84484; 85025; 85379; 86803; 87502; 87811; 93005; 94640; 94644; 96365; 96375; 99285